=== PATIENT | female | born 1980 | race Caucasian/White ===

== ENCOUNTER → 2021-10-06 | Outpatient (CLI) | payer OTHER ==
--- NOTE | 2021-10-06 08:44 | US ---
EXAMINATION TYPE: US thyroid st tissue head/neck DATE OF EXAM: 10/06/2021 COMPARISON: NONE CLINICAL HISTORY: R22.1 Mass of Neck. Left neck mass for the past week Right Neck Multiple lymph nodes seen largest measured 1). 1.6 x 1.0 x 0.5cm Left Neck Multiple lymph nodes seen largest measured 1). 2.2 x 1.5 x 1.1cm (area of palpable lump) 2 ). 1.1 x 0.8 x 0.4cm Bilateral neck scanned Abnormal adenopathy is identified in the left neck in area of clinical concern with thickened cortex in largest lymph node. Additional subcentimeter benign-appearing lymph nodes are present bilaterally. IMPRESSION: Single abnormal enlarged lymph node. Differential includes reactive adenopathy related to infection or inflammation. Neoplasm cannot be excluded. If it is felt to persist after 4-6 weeks miranda e further investigation with contrast-enhanced neck CT would be warranted. 2017 ACR TI-RADS LEVEL: *Highest TI-RADS level nodule reported
== END | disposition home or self-care (01) ==
LOC: RADUSWWP 07:42
PROVIDERS: ATTEND Family Medicine
DX: R59.9 Enlarged lymph nodes, unspecified (principal)
CPT/HCPCS: 76536

== ENCOUNTER → 2021-11-22 | Outpatient (CLI) | payer OTHER ==
--- NOTE | 2021-11-22 14:54 | CT ---
EXAMINATION TYPE: CT soft tissue neck wo con DATE OF EXAM: 11/22/2021 HISTORY: Left sided neck swelling COMPARISON: Ultrasound dated 11/09/2021 CT DLP: 562.4 mGycm. Automated Exposure Control for Dose Reduction was Utilized. TECHNIQUE: CT scan of the neck is performed without IV contrast administration, axial images are obt ained, coronal and sagittal reformatted images are reviewed. FINDINGS: Airway: No gross abnormality seen. Parotid/submandibular glands: No gross abnormality seen. Unremarkable thyroid gland. Carotid/Vascular Structures: Aortic arch atherosclerotic calcification. The pulmonary artery measures 3 cm. Vascular patency cannot be assessed by this unenhanced CT scan. Osseous Structures: Mild degenerative changes of the cervical spine. No aggressive bone lesion. Other: Scattered subcentimeter bilateral cervical and submandibular lymph nodes measuring up to 8mm i n the left level 2, nonspecific. No pathologically enlarged lymph nodes in the neck. Minimal anterior mediastinal fat stranding, nonspecific. 2 mm lung nodule is seen along the superior aspect of the le ft oblique fissure, for optional follow-up CT scan in 12 months if high risk patient. Mucosal thicken ing of the maxillary sinuses. IMPRESSION: No definite neck mass or suspicious lymphadenopathy by this nonenhanced CT scan. Incident al findings and recommendations as described above.
== END | disposition home or self-care (01) ==
LOC: RADCTMAIN 11:04
PROVIDERS: ATTEND Family Medicine
DX: I89.9 Noninfective disorder of lymphatic vessels and lymph nodes, unspecified (principal)
CPT/HCPCS: 70490

== ENCOUNTER → 2021-12-10 | Outpatient (CLI) | payer OTHER ==
--- NOTE | 2021-12-10 10:17 | CT ---
EXAMINATION TYPE: CT chest w con DATE OF EXAM: 12/10/2021 COMPARISON: Correlation CT neck 11/22/2021 HISTORY: 41-year-old female R91.1, solitary lung nodule TECHNIQUE: Contiguous axial scanning of the chest after the administration of 100 mL of Isovue 300. Coronal/sagittal reconstructions performed. CT DLP: 687mGycm. Automatic exposure control utilized for a dose reduction. FINDINGS: Heart normal size without pericardial effusion. Prominent epicardial fat pad. Aorta normal caliber with conventional arch vessel branching anatomy. Minimal strandy thymic tissue in the prevascular space. No thoracic lymphadenopathy by CT size criter ia. Some strandy atelectasis or scarring medial basal right middle lobe. No consolidation or pleural effu cliff. Punctate 2 mm posterior left upper lung pulmonary nodule along the major fissure shows no interval ch sabrina, axial image 19. No additional suspicious pulmonary nodule is seen. Visualized upper abdomen shows low attenuation of the hepatic parenchyma suggesting fatty infiltratio n. There is a inferior splenule noted. Bones: No osseous destructive process. IMPRESSION: 1. Unchanged 2 mm posterior left upper lung pulmonary nodule along the major fissure. A benign etiolo gy is favored. Optional twelve-month follow-up CT can be considered. 2. No additional suspicious pulmonary nodules. Some strandy scarring or atelectasis at the right midd le lobe. 3. Suspect hepatic steatosis.
== END | disposition home or self-care (01) ==
LOC: RADCTMAIN 08:44
PROVIDERS: ATTEND Family Medicine
DX: R91.1 Solitary pulmonary nodule (principal); J98.11 Atelectasis
CPT/HCPCS: 71260; Q9967

== ENCOUNTER → 2024-02-20 | Outpatient (CLI) | payer OTHER ==
--- NOTE | 2024-02-21 19:20 | US ---
EXAMINATION TYPE: US transvaginal DATE OF EXAM: 02/20/2024 COMPARISON: NONE CLINICAL INDICATION: Female, 43 years old with history of N92.6 IRREGULAR MENSTRUATION, UNSPECIFIED; Irregular bleeding x 1 month TECHNIQUE: Transvaginal exam only per patient's order Date of LMP: December 2023 EXAM MEASUREMENTS: Uterus: 8.6 x 3.9 x 4.3 cm Endometrial Stripe: 0.6 cm Right Ovary: 2.5 x 1.6 x 2.9 cm Left Ovary: 2.4 x 1.6 x 2.4 cm 1. Uterus: heterogeneous 2. Endometrium: appears wnl 3. Right Ovary: 2.4 x 2.4 x 2.4cm simple appearing cyst 4. Left Ovary: wnl 5. Bilateral Adnexa: wnl 6. Posterior cul-de-sac: wnl IMPRESSION: 1. 2.4 cm right ovarian cyst
== END | disposition home or self-care (01) ==
LOC: RADUSWWP 15:35
PROVIDERS: ATTEND Family Medicine
DX: N83.201 Unspecified ovarian cyst, right side (principal); N92.6 Irregular menstruation, unspecified
CPT/HCPCS: 76830